=== PATIENT | male | born 1960 | race Two or more races ===

== ENCOUNTER 2018-01-08 07:01 | Day surgery (SDC) | payer MEDICARE ==
[~2018-01-08] VITALS: Ht 182.9 cm; Wt 99.6 kg
[2018-01-08] MEDS ORDERED: IOHEXOL 350 MG/ML 50 ML BTL (for Cath Lab) OTHER ONE (07:02)
[2018-01-08] MEDS ORDERED: OXYB5TAB8 PO (07:59)
[2018-01-08] MEDS ORDERED: ESCI20TA PO (07:59)
[2018-01-08] MEDS ORDERED: UBID50CA4 PO (07:59)
[2018-01-08] MEDS ORDERED: MIDO10TA PO (07:59)
[2018-01-08] MEDS ORDERED: ALPR1TAB3 PO (07:59)
--- NOTE | 2018-01-08 09:51 | PD.VS.PN ---
Pre-operative Note Pre-operative diagnosis: Failing LEFT upper extremity AVF Planned procedure: Aortogram w/ L UE angiogram Interval History: Pt has been feeling well; no changes in health that would preclude OR. Labs: Laboratory Results Test 01/08/18 07:35 Potassium Level 5.8 MEQ/L (3.5-5.1) Blood: none needed Imaging: will make in OR Orders: NPO Post-operative destination: DOCU Operative site marked: Yes Consent: Informed consent has been obtained from Kris March. I have explained the procedure in detail and discussed the risks, benefits, and potential complications. All questions have been answered. Joaquim Garnica MD January 08, 2018 09:51
[2018-01-08] MEDS ORDERED: MIDAZOLAM HCL 5 MG/5 ML VIAL ONE (10:11)
[2018-01-08] MEDS ORDERED: HEPARIN SODIUM - IV 10,000 UNITS/10 ML VIAL ONE (10:13)
--- NOTE | 2018-01-08 10:53 | HHI.PR ---
cc: Joaquim Garnica MD Immediate Post Op Note Procedure Date: January 08, 2018 Pre Op Diagnosis: Failing L UE AVF Post Op Diagnosis: Failing L UE AVF Surgeon: Joaquim Garnica [employer](s): none Procedure: Thoracic aortogram w/ L UE angiogram Findings: 1. No arch or arterial inflow disease 2. End to side BC AVF with reversal of flow (AC towards hand) 3. Will need surgical revision Additional Information: 5F R RETRIMMER sheath removed in OR Complications: none Specimen(s) removed: none Estimated blood loss: 10mL Anesthesia: MAC Drains: None Patient to: Other (DOCU) Patient Condition: Good Date/Time of Procedure: SEE SURGICAL CARE RECORD Joaquim Garnica MD January 08, 2018 10:52
--- NOTE | 2018-01-08 10:53 | CATHPROC ---
[employer] HIS Report Study Information Study Number Admission Scheduled Start Study Start [id number] Jan 08 2018 7:01AM 01/08/2018 Jan 08 2018 9:48AM [facility] Cath Endovascular Study Admit Source Facility Department Other [facility] - Studio Operator Physician and Clinical Staff Initial MD Garnica, Joaquim Director Of Revenue Adnrew Biswas,ASHUTOSH Recorder Leah Tinoco,ASSISTED LIVING COORDINATOR TECH2 Scrub Robin Levy,RT(R) Procedures Performed Procedure Location (Site) Vessel Name Abdominal Angiogram AO Arch (A1) Aorta Subclavian Angiogram Fistula Arterial Graft Subclavian Angiogram Subclav. Art. (Lft.) Subclavian Art. Wire insertion Fem Art (right) Femoral Art Equipment Time Intelligence Specialist Description Size Mfg Part Number Used/Scraped INTRODUCER SET, 09:49 [employer] FR 5 [id number] *[id number] Used MICROPUNCTURE STIFF [id number] *[id number] 10:29 MALLINCKRODT SYRINGE, ANGIOMAT 150ML 150ML *[id number] Used 2SUB [id number] 09:49 [employer] PACK, CCL CUSTOM * Used *[id number] CATHETER, VERTEBRAL 5FR 10:27 [employer] MEDICAL/MARY FR 5 [id number] Used 100CM TUBING, PRESSURE INJECTION [id number] 09:49 NAMIC PACER 72" Used 72" *[id number] 09:49 [employer]COMED OMNIPAQUE, 300 MG, 150ML 150ML [id number] Used 09:49 [employer]COMED OMNIPAQUE, 300 MG, 50ML 50ML [id number] Used [id number] 09:49 BERRY MEDICAL BLANKET,WARM AIR CCL * Used *[id number] 10:23 TERUMO MEDICAL SHEATH, FR5 TERUMO (10CM) FR 5 Used *[id number] WIRE, ANGLED GLIDE .035 [id number] 09:49 TERUMO MEDICAL/MARY 260CM Used 260CM *[id number] History: Allergies Allergy Reaction oxycodone hallucinations/combative History: Risk Factors Hypertension Yes On Dialysis History: Other Disease Selection Items Cancer Depression Renal Failure-Dialysis Labs K (meq/l) 3.50-5.10 5.8 CPK-MB (ng/ML) 0.50-3.60 Not Drawn Medication Medication Total Dose (Bolus/Oral) Medication Total Dosage/Unit 1% XYLOCAINE 20 mL FENTANYL 25 mcg HEPARIN 3000 units VERSED 2 mg Medications (Bolus/Oral) Medication Time Given Dosage/Unit Administered By Reason VERSED 01/08/2018 10:20:08 AM 2 mg Andrew Biswas 2 mg VERSED given in lab by Andrew Biswas RN in Right Antecubital via Peripheral IV. Ordered by Joaquim Garrido. 1% XYLOCAINE 01/08/2018 10:20:13 AM 20 mL Joaquim Garnica 20 mL 1% XYLOCAINE given in lab by Joaquim Garnica in Right Groin via Subcutaneous. FENTANYL 01/08/2018 10:20:48 AM 25 mcg Andrew Biswas 25 mcg FENTANYL given in lab by Andrew Biswas RN in Right Antecubital via Peripheral IV. Ordered by Joaquim Garnica. HEPARIN 01/08/2018 10:23:49 AM 3000 units Andrew Biswas 3000 units HEPARIN given in lab by Andrew Biswas RN in Right Antecubital via Peripheral IV. Ordered by Joaquim Garnica. Medication (Drip) Medication Time Given Dosage/Unit Concentration/Unit Diluent (ml) Solution IV Solutions 01/08/2018 10:01:38 AM 0 mL (IV) 500 NaCl .9 Patient arrived on IV Solutions in Right Antecubital via Peripheral IV. Pump/Drip Flow = 20 ml/hr usi ng NaCl .9. Initial Case Assessment Cardiovascular HR Rhythm NIBP Chest Pain 74 sr 138/73 0 Circulatory - Right Pulses Dorsalis Pedis 1 Scale (0,1,2,3,4,d) Circulatory - Left Pulses Dorsalis Pedis 2 Scale (0,1,2,3,4,d) Neurological State Oriented to time-place- Alert Moves all extremities person Respiration - General Respiration Rate SpO2 (%) (B/min) 16 97 Final Case Assessment Cardiovascular HR Rhythm NIBP Chest Pain 75 sr 131/59 0 Circulatory - Right Pulses Dorsalis Pedis 1 Scale (0,1,2,3,4,d) Circulatory - Left Pulses Dorsalis Pedis 2 Scale (0,1,2,3,4,d) Neurological State Oriented to time-place- Alert person Respiration - General Respiration Rate SpO2 (%) (B/min) 10 96 Chronological Log Time Study Chronological Log 9:55:30 Patient arrived via Bed. 9:55:40 Patient Name, D.O.B, / Armband Verified By R.N. 10:01:25 Consent signed by the physician and the patient and verified by the Studio Operator staff. 10::26 Pre-op and post- op instructions given; patient acknowledges understanding of instructions. 10:01:26 Verbal Stimulation=2 Physical Stimulation=2 Airway=2 Respiration=2 TOTAL=8. (0=absent, 1=li mited, 2=present) 10:01:28 Presedation assessment performed by Studio Operator RN. 10:01:30 Patient has been NPO for More than 6Hrs. 10:01:31 Skin Breakdown-none 10:01:34 Patient Warmer Placed on the Table. 10:01:35 Maddie Prominences Protected 10:01:37 A # 20 IV was noted in the Antecubital (left). Grade = patent 10:01:38 Patient arrived on IV Solutions in Right Antecubital via Peripheral IV. Pump/Drip Flow = 20 ml/hr using NaCl .9. 10:01:40 History and physical on the chart or being dictated. 10:08:49 MD arrived. Vitals capture started with the following parameters, Patient=Adult, Interval=5 min, Initial Pr fxzlln=349 mmHg, 10:10:23 Deflation Rate=5 mmHg, Cuff placed on Right Ankle 10:11:04 HR=74 bpm, BNIE=582/73 mmhg, SpO2=97.0 %, Resp=16 B/min Assessment: Initial Case, HR=74 BPM, Rhythm=sr, NLGZ=032/73 mmhg, Chest Pain=0 Right Pulses: Harish Ped=1 10:11:29 Left Pulses: Harish Ped=2 Neurological: State=Alert, Ox3, PACE Respiration: Resp=16 B/min, SpO2=97 % 10:13:36 Bilateral groins prepped with 2% chlorhexidine, and draped after a 3 minute waiting time. 10:15:59 HR=78 bpm, LNIQ=414/88 mmhg, SpO2=97.0 %, Resp=11 B/min Time Out. Correct patient, correct procedure, correct physician, power injector loaded, or not loaded with contrast with 10:20:04 surgical team present. Time Out Concurred by MD and individual staff in procedure. 10:20:08 2 mg VERSED given in lab by Andrew Biswas, ASHUTOSH in Right Antecubital via Peripheral IV. Orde red by Joaquim Garnica. 10:20:09 Case Start 10:20:13 20 mL 1% XYLOCAINE given in lab by Joaquim Garnica in Right Groin via Subcutaneous. 10::48 25 mcg FENTANYL given in lab by Andrew Biswas, RN in Right Antecubital via Peripheral IV. Ordered by Joaquim Garnica. 10:20:56 HR=77 bpm, UVLN=347/85 mmhg, SpO2=96.0 %, Resp=14 B/min 10:22:40 Access site was Right Femoral Artery. A INTRODUCER SET, MICROPUNCTURE STIFF FR 5 was advanced into the Fem Art (right) using the Perc utaneous ::48 technique. A SHEATH, FR5 TERUMO (10CM) FR 5 was exchanged in the Fem Art (right). This was necessary in or curt to 10::54 accomodate a larger catheter. 10:23:22 A WIRE, ANGLED GLIDE .035 260CM 260CM was inserted via Fem Art (right). A PIGTAIL STR. INFINITI CATHETER FR 5 was advanced over a wire. OMNIPAQUE, 300 MG, 50ML 50ML wa s used for 10:23:33 injections. 10:23:49 3000 units HEPARIN given in lab by Andrew Biswas, ASHUTOSH in Right Antecubital via Peripheral I V. Ordered by Joaquim Garnica. 10:25:39 Through a PIGTAIL STR. INFINITI CATHETER FR 5, The Abdominal Aorta was injected with 20 cc' s of contrast. 10:25:59 HR=78 bpm, VJAF=193/83 mmhg, SpO2=95.0 %, Resp=10 B/min After removing the current catheter a CATHETER, VERTEBRAL 5FR 100CM FR 5 was advanced over a WI RE, ANGLED 10:26:13 GLIDE .035 260CM 260CM. 10:27:14 Reference ECG taken 10:28:45 Wire removed Through a CATHETER, VERTEBRAL 5FR 100CM FR 5, The Subclav. Art. (Lft.) was injected with a tot al of 8 cc's of 10:29:52 contrast. OMNIPAQUE, 300 MG, 50ML 50ML used. 10:31:25 HR=80 bpm, NMFY=335/80 mmhg, SpO2=93.0 %, Resp=8 B/min Through a CATHETER, VERTEBRAL 5FR 100CM FR 5, The Fistula was injected with a total of 8 cc's of contrast. 10:32:14 OMNIPAQUE, 300 MG, 50ML 50ML used. Through a CATHETER, VERTEBRAL 5FR 100CM FR 5, The Fistula was injected with a total of 12 cc's of contrast. 10:33:35 OMNIPAQUE, 300 MG, 50ML 50ML used. 10:35:03 A WIRE, ANGLED GLIDE .035 260CM 260CM was inserted via Fem Art (right). 10:35:09 Catheter was removed 10:36:34 HR=81 bpm, QEWV=634/75 mmhg, SpO2=95.0 %, Resp=8 B/min 10:39:09 Case End 10:40:10 Sheath removed; pressure applied to access site. 10:41:00 HR=80 bpm, TAIE=678/76 mmhg, SpO2=95.0 %, Resp=8 B/min 10:45:59 HR=79 bpm, HTNA=197/80 mmhg, SpO2=94.0 %, Resp=8 B/min 10:50:33 Hemostasis obtained. 10:50:49 Sterile dressing applied to site 10:50:52 No case complications noted. 10:50:53 Cine recording checked. 10:50:54 Bedside Report will be given. Assessment: Final Case, HR=75 BPM, Rhythm=sr, JLHC=219/59 mmhg, Chest Pain=0 Right Pulses: Harish Ped=1 10:51:00 Left Pulses: Harish Ped=2 Neurological: State=Alert, Ox3 Respiration: Resp=10 B/min, SpO2=96 % 10:51:03 HR=88 bpm, QYZO=810/59 mmhg, SpO2=94.0 %, Resp=8 B/min 10:52:52 Vitals capture stopped. 10:53:14 Patient moved to bed 10:55:24 Patient transported to DOCU. End Study - Contrast Media Used In Study Contrast Total Opened (mL) Total Used (mL) Total Wasted (mL) Omnipaque 50 50 0 End Study - Radiation Exposure Fluoro Time (minutes) 2.0 End Study - Sheaths Sheaths Pulled By Sheath Hold Time (min) Robin Levy End Study - Patient Disposition Complications Transferred To Interventional Outcome No Outpatient Bed No attempt made
[2018-01-08 11:30] VITALS: O2SAT 93
--- NOTE | 2018-01-08 12:35 | MP ---
cc: Joaquim Garnica MD DATE OF OPERATION: 01/08/2018 PREOPERATIVE DIAGNOSIS: Failed left upper extremity arteriovenous fistula. POSTOPERATIVE DIAGNOSIS: Failed left upper extremity arteriovenous fistula. PROCEDURES PERFORMED: 1. Thoracic aortograms. 2. Left upper extremity angiogram. ATTENDING SURGEON: Joaquim Garnica MD RATE MANAGER SURGEON: None. ANESTHESIA: Local with sedation. INDICATION: Mr. March is a 57-year-old gentleman with left upper extremity access. This has been remediated several times and he appears to have outflow cephalic vein going from the antecubital to the wrist, and he was taken to the operating room for angiographic evaluation in preparation for surgical revision. Please note there was no prior catheter-based imaging available for my review. DESCRIPTION OF PROCEDURE:: Informed consent was obtained from the patient. He was taken to the operating room and placed supine on the operating room table. An appropriate timeout was taken to ensure correct patient's identity, operative site and planned procedure. Administration of antibiotics was not necessary as this is a clean procedure without a planned implantation of any foreign objects. Everyone in the room agreed with timeout and we proceeded. His bilateral groins were prepped and draped. Right groin was anesthetized with 1% lidocaine. A 21-gauge micropuncture needle was used to access the right common femoral artery. This was exchanged using Seldinger technique for a micropuncture sheath, through which a 0.035 Glidewire was introduced. The micropuncture sheath was changed for a 5-Hungarian sheath. The patient was systemically heparinized with 3000 units of IV heparin. The Glidewire was advanced to the ascending aorta and the pigtail catheter was placed over this. A thoracic aortogram was obtained. The Glidewire was reintroduced and this pigtail catheter exchanged for a vertebral catheter, which was used to selectively catheterize the subclavian, axillary and proximal brachial arteries, and left upper extremity angiogram was obtained. Wire, catheter and sheath were removed and pressure was held for hemostasis. There were no complications. I was present and scrubbed for the procedure. INTERPRETATION OF IMAGES: The patient has a patent 3-vessel aortic arch. The left subclavian, axillary and brachial arteries are widely patent without any hemodynamically significant stenoses. There is what appears to be a branch of the cephalic vein, which is anastomosed to the brachial artery and the outflow in the upper arm is occluded, but the outflow going from the antecubital down to the wrist is patent, and the ultimate outflow is the brachial and basilic veins of the forearm and upper arm. MD GUERO Lomas/ADITYA , 11:14 AM , 12:33 PM
== END 2018-01-08 15:41 | disposition home or self-care (01) ==
LOC: HDOC 07:01 → HDIC 07:01 → HDOC 15:41
PROVIDERS: ATTEND Surgery
DX: T82.858A Stenosis of other vascular prosthetic devices, implants and grafts, initial encounter (principal); N18.6 End stage renal disease; I12.0 Hypertensive chronic kidney disease with stage 5 chronic kidney disease or end stage renal disease; Z99.2 Dependence on renal dialysis
CPT/HCPCS: 36200; 36216; 75605; 75716; 84132; 99152; C1769; C1893; J1644; J2250; J3010; Q9967

== ENCOUNTER → 2018-01-15 | Day surgery (SDC) | payer MEDICARE ==
[~2018-01-15] VITALS: Ht 182.9 cm; Wt 100.5 kg
[~2018-01-15] MED LIST: ALPR1TAB3 PO; BUPIVACAINE HCL PF 0.5% 30 ML VIAL ONE; CALCIUM CHLORIDE 10% SOLN 1 GRAM/10 ML SYR ONE; CHLORHEXIDINE GLUCONATE 2 % 1 PACK (2 CLOTHS) TOPICAL PRN; DO NOT ADM ANY ANTICOAGULANT DRUGS PRN; ESCI20TA PO; HEPARIN SODIUM - IV 10,000 UNITS/10 ML VIAL ONE; HEPARIN-NS/PF INJ 500 ML ONE; HYDROmorphone HCL 2 MG TAB PO PRN; INSULIN HUMAN REGULAR 1,000 UNITS/10 ML VIAL SQ PRN; LACTATED RINGER'S 1000 ML IV PRN; LEVO175T2 PO; LIDOCAINE HCL 1% PF 5 ML SYRINGE OTHER ONE; METOPROLOL TARTRATE 25 MG TAB PO PRN; MIDO10TA PO; MORPHINE SULFATE 4 MG/ML INJ IV PRN; OXYB5TAB8 PO; PHENYLEPH/NS 1000 MCG/10 ML SYR IV ONE; POVIDONE IODINE 5% (ANTISEPSIS KIT) 4 APPLICATIONS EACH NARE PRN; PROPOFOL 200 MG/20 ML AMP IV ONE; PROTAMINE SULFATE 50 MG/5 ML VIAL ONE; SODIUM BICARBONATE 8.4% INJ 50 MEQ/50 ML SYR ONE; SODIUM CHLOR 0.9% 250 ML INJ 250 ML IV ONE; SODIUM CHLOR 0.9% 250 ML INJ 250 ML ONE; SODIUM CHLORID 0.9% 500 ML IV PRN; THROMBIN (TOPICAL) 20,000 UNIT SPRAY KIT ONE; UBID50CA4 PO; VANCOMYCIN HCL 1000 MG VIAL ONE; ePHEDrine/NS 25 MG/5 ML SYRINGE IV ONE
[2018-01-15 08:10] LABS: BASOPHIL # 0.1 TH/MM3 (0-0.2); BASOPHIL % 0.8 % (0.0-2.0); EOSINOPHIL # 0.3 TH/MM3 (0-0.4); EOSINOPHIL % 3.8 % (0.0-4.0); HEMATOCRIT 36.6 % (39.0-51.0); HEMOGLOBIN 12.1 GM/DL (13.0-17.0); LYMPH % 17.5 % (9.0-44.0); LYMPHOCYTE # 1.3 TH/MM3 (1.0-4.8); MEAN CELL VOLUME 96.4 FL (80.0-100.0); MEAN CORPUSCULAR HGB CONC 33.2 % (32.0-36.0); MEAN PLATELET VOLUME 8.1 FL (7.0-11.0); MONO % 11.3 % (0.0-8.0); MONOCYTE # 0.8 TH/MM3 (0-0.9); NEUT % 66.6 % (16.0-70.0); PLATELET COUNT 156 TH/MM3 (150-450); RED CELL DISTRIBUTION WIDTH 18.6 % (11.6-17.2); WHITE BLOOD COUNT 7.4 TH/MM3 (4.0-11.0)
[2018-01-15 08:13] LABS: PROTHROMBIN TIME - PATIENT 10.4 SEC (9.8-11.6)
--- NOTE | 2018-01-15 08:17 | PD.VS.PN ---
Pre-operative Note Pre-operative diagnosis: Failing LEFT arm access Planned procedure: L UE access revision Interval History: Pt has been feeling well; no problems. Yonatan HD yesterday. Labs: Laboratory Results Test 01/15/18 07:30 Hematocrit 36.6 % (39.0-51.0) Hemoglobin 12.1 GM/DL (13.0-17.0) Mean Corpuscular Hemoglobin 32.0 PG (27.0-34.0) Mean Corpuscular Hemoglobin Concent 33.2 % (32.0-36.0) Mean Corpuscular Volume 96.4 FL (80.0-100.0) Mean Platelet Volume 8.1 FL (7.0-11.0) Platelet Count 156 TH/MM3 (150-450) Prothromb Time International Ratio 1.0 RATIO Red Blood Count 3.80 MIL/MM3 (4.50-5.90) Red Cell Distribution Width 18.6 % (11.6-17.2) White Blood Count 7.4 TH/MM3 (4.0-11.0) Blood: T&S Imaging: Angio reviewed Orders: NPO Vanc 1g IV OCTOR Post-operative destination: PACU Operative site marked: Yes Consent: Informed consent has been obtained from Kris March. I have explained the procedure in detail and discussed the risks, benefits, and potential complications. All questions have been answered. Patient contact information: [phone] Joaquim Garnica MD January 15, 2018 08:17
[2018-01-15 08:22] LABS: BICARBONATE 22.2 MEQ/L (21.0-32.0); CALCIUM 9.7 MG/DL (8.5-10.1)
[2018-01-15 08:32] LABS: CREATININE 11.17 MG/DL (0.60-1.30)
--- NOTE | 2018-01-15 09:09 | EKG ---
Date Performed: 01/15/2018 Time Performed: 07:20:44 PTAGE: 57 years EKG: Sinus rhythm RIGHT BUNDLE BRANCH BLOCK LEFT ANTERIOR FASCICULAR BLOCK ABNORMAL ECG NO PREVIOUS TRACING DOCTOR: Lon Guzman Interpretating Date/Time 01/15/2018 09:07:39
--- NOTE | 2018-01-15 10:16 | HHI.PR ---
cc: Joaquim Garnica MD Immediate Post Op Note Procedure Date: January 15, 2018 Pre Op Diagnosis: Failing L UE AVF Post Op Diagnosis: Failing L UE AVF Surgeon: Joaquim Garnica Forensic Ballistics Expert(s): Joaquim Fields Procedure: L UE Access revision (conversion to forearm AVF loop with 6mm PTFE, basilic vein outflow) Findings: + thrill in outflow basilic vein + Doppler signal in wrist Complications: none Specimen(s) removed: none Estimated blood loss: 100mL Anesthesia: LMA Drains: None Fluids: 750 IVF Patient to: PACU Patient Condition: Good Implant/Devices: SEE IMPLANT LOG (if applicable) Date/Time of Procedure: SEE SURGICAL CARE RECORD Joaquim Garnica MD January 15, 2018 10:16
--- NOTE | 2018-01-15 10:46 | MP ---
cc: Joaquim Garnica MD DATE OF OPERATION: 01/15/2018 PREOPERATIVE DIAGNOSIS: Failing left upper extremity arteriovenous fistula. POSTOPERATIVE DIAGNOSIS: Failing left upper extremity arteriovenous fistula. PROCEDURE PERFORMED: Left upper extremity access revision (conversion to loop AV graft with the proximal aspect of the loop being the previous cephalic vein and the outflow being the basilic vein). OPERATING SURGEON: Joaquim Garnica MD PLANER FEEDER SURGEON: Joaquim Marquez. ANESTHESIA: General. INDICATIONS FOR PROCEDURE: This is a 57-year-old gentleman with a history of left upper extremity arteriovenous fistula. This was a brachiocephalic with a vbhl-ez-[id number] configuration with the outflow of the cephalic vein being both centrally towards the shoulder and headed peripherally towards the wrist. The central component failed and the outflow was essentially the cephalic vein going towards the wrist with the outflow of the fistula being burns paiute cephalic vein outflow. This was failing, and he was brought to the operating room for elective revision. DESCRIPTION OF PROCEDURE: Informed consent was obtained, the patient was taken to the operating room and placed supine on the operating table. Appropriate timeout was taken to ensure the patient's identity, the operative site and planned procedure. The administration of 1 gram of vancomycin was initiated prior to skin incision and will be discontinued after single preoperative dose. Vancomycin was chosen because of the patient's end-stage renal disease. Everyone in the room agreed with timeout and we proceeded. His left arm was prepped and draped. An incision was made over the course of the fistula, carried down to subcutaneous tissue with electrocautery. The fistula was identified and dissected free. A separate incision was made on the medial aspect of the upper arm, carried down to subcutaneous tissue with electrocautery. The basilic vein was identified. Side branches of the basilic vein were ligated with 3-0 silk. A tunnel was then created between these two and a 6 mm PTFE was passed through the tunnel, taking caution not to twist it. The patient was systemically heparinized with 3000 units of IV heparin. Proximal control of the fistula was obtained with a profunda clamp and the distal aspect, which was the burns paiute cephalic vein, was ligated with 3-0 silk ties. The fistula was then spatulated and the PTFE was sewn end-to-end with running 5-0 Prolene suture. At the completion it was flushed and deemed hemostatic. Clamps were released and María softjaw was placed on the graft. The basilic vein was controlled proximally and distally with profunda clamps and a longitudinal venotomy was made with 11 blade, extended with Blue scissors. The graft was cut to the appropriate length, spatulated and sewn end-to-side with running 5-0 Prolene suture. At the completion it was flushed and noted to be hemostatic. There was a nice thrill in the fistula and a Doppler signal in the wrist. The heparin was reversed with protamine. The wound was infiltrated with Marcaine, made hemostatic and closed with 2-0 Polysorb, 3-0 Polysorb and 4-0 Monocryl. Sponge, needle counts were correct at the end of the case. I was present and scrubbed and performed the entire procedure. MD GUERO Lomas/JOEL , 10:21 AM , 10:45 AM
[2018-01-15 11:10] VITALS: BP 137/73; PULSE 16; RESP 20; TEMP 97.3; O2SAT 98
== END | disposition home or self-care (01) ==
LOC: HCVO 06:50
PROVIDERS: ATTEND Surgery
DX: T82.590A Other mechanical complication of surgically created arteriovenous fistula, initial encounter (principal); N18.6 End stage renal disease; Z01.810 Encounter for preprocedural cardiovascular examination; Z01.818 Encounter for other preprocedural examination
CPT/HCPCS: 01844; 36832; 80048; 85025; 85610; 86850; 86900; 86901; 93005; C1768; J1644; J2370; J2720; J3010; J3370; J7040; J7050

== ENCOUNTER 2018-05-10 09:33 | Inpatient (IN) ==
--- NOTE | 2018-05-10 10:33 | ED ---
HPI General Chief complaint: [employer] Problem Stated complaint: doctor sent Time Seen by Provider: 05/10/18 10:25 Source: patient and other (Dr. Garnica) Mode of arrival: ambulatory Limitations: no limitations History of Present Illness complaint: Clotted left AV fistula Onset (ago): minute(s) (Noted just prior to presentation) Location: left and upper extremity Severity: mild Associated symptoms: denies other symptoms Related Data Home Medications Medication Instructions Recorded Confirmed alprazolam 0.5 mg PO DAILY PRN 05/10/18 05/10/18 cinacalcet [Sensipar] See Label Instructions .ROUTE 05/10/18 05/10/18 .COMPLEX escitalopram oxalate 20 mg PO BID 05/10/18 05/10/18 levothyroxine 50 mcg PO DAILY 05/10/18 05/10/18 sevelamer carbonate [Renvela] 800 mg PO TIDAC 05/10/18 05/10/18 Allergies Allergy/AdvReac Type Severity Reaction Status Date / Time oxycodone AdvReac Unknown hallucinati Verified 05/10/18 10:26 ons/combati ve Review of Systems ROS: all other systems reviewed are negative [facility] Medical History Medical History AV fistula (Acute) Acute renal failure on dialysis (Acute) Anuria (Acute) Anxiety and depression (Acute) Surgical History Surgical History History of nephrectomy (Acute) History of thyroidectomy, total (Acute) Social History Social History Substance History: No History of Abuse Second Hand Smoke Exposure: No Smoking Status: Never smoker How Often Do You Have a Drink Containing Alcohol: Never Recent Travel in [facility] within the Last 8 Weeks: No Recent Out of Country Travel within the Last 8 Weeks: No Immunization History Tetanus Immunization: <5 Years Hx Influenza Vaccine This Season: No Exam Const General: cooperative, healthy appearing and comfortable Orientation: alert, awake and oriented x3 HENMT Head: normal to inspection, normocephalic and atraumatic Eyes Alignment and Position: alignment normal Conjunctivae: conjunctivae normal Sclera: sclerae normal EOM: EOM intact bilaterally Neck Neck: normal visual inspection and full ROM Chest Chest: normal inspection of the chest and normal palpation of entire chest wall Resp Effort & Inspection: normal respiratory effort and able to speak in complete sentences Cardio Rate: regular rate Rhythm: regular rhythm Back/Spine/Pelvis Cervical Spine: cervical ROM normal Thoracic/Lumbar Spine: thoraco-lumbar ROM normal Skin General: turgor normal and dry skin Neuro General: alert, awake, oriented x3, moves all extremities and CN's II-XI intact bilaterally Extrem General: normal to inspection and full ROM Left upper extremity: full ROM, normal capillary refill and shoulder/upper arm ( AV fistula just above the left antecubital fossa. There is a palpable pulse on the arterial side of the fistula but no thrill palpable on the venous side of the fistula.) Psych Appearance: grossly normal Mental Status: mental status grossly normal Speech and Movement: speech and movement normal Mood: congruent mood Affect: normal affect Attitude: cooperative Thought Process: normal Thought Content: normal Judgment: judgment good Course Consultations Consultation #1: Dr. Garnica requested admission to the medical service with consultations to IR and nephrology. Time: 10:29 Consultation #2: Dr. Ospina will admit. Time: 12:23 Initial Documented Vital Signs Temperature 97.5 F L 05/10/18 09:47 Pulse Rate 78 05/10/18 09:47 Respiratory Rate 14 05/10/18 09:47 Blood Pressure 136/78 05/10/18 09:47 Pulse Oximetry 96 05/10/18 09:47 Last Documented Vital Signs Temperature 97.5 F L 05/10/18 09:47 Pulse Rate 78 05/10/18 09:47 Respiratory Rate 14 05/10/18 09:47 Blood Pressure 136/78 05/10/18 09:47 Pulse Oximetry 96 05/10/18 09:47 Medical Decision Making [facility] Narrative Medical decision making narrative: Patient presents with a chief complaint of a clotted left AV fistula. It was noted when he went to dialysis this morning. He called Dr. Garnica who placed the AV fistula. Dr. Marsh instructed the patient to come to the emergency department for further evaluation and treatment. Medical Screen Exam Complete: Yes Emergency Medical Condition: Yes Lab Data Lab results reviewed: Yes I reviewed the patient's lab results. Result diagrams: 05/10/18 10:30 05/10/18 10:30 Lab Results 05/10/18 05/10/18 05/10/18 Range/Units 10:30 10:30 10:30 WBC 8.7 (4.0-11.0) th/mm3 RBC 3.16 L (4.50-5.90) mil/mm3 Hgb 10.6 L (13.0-17.0) gm/dL Hct 31.8 L (39.0-51.0) % MCV 100.5 H (80.0-100.0) fL MCH 33.4 (27.0-34.0) pg MCHC 33.2 (32.0-36.0) % RDW 21.8 H (11.6-17.2) % Plt Count 139 L (150-450) th/mm3 MPV 7.6 (7.0-11.0) fL Neut % (Auto) 63.7 (16.0-70.0) % Lymph % (Auto) 19.7 (9.0-44.0) % Larue % (Auto) 12.4 H (0.0-8.0) % Eos % (Auto) 3.5 (0.0-4.0) % Baso % (Auto) 0.7 (0.0-2.0) % Neut # (Auto) 5.6 (1.8-7.7) th/mm3 Lymph # (Auto) 1.7 (1.0-4.8) th/mm3 Larue # (Auto) 1.1 H (0.0-0.9) th/mm3 Eos # (Auto) 0.3 (0.0-0.4) th/mm3 Baso # (Auto) 0.1 (0.0-0.2) th/mm3 WBC Differential . Differential Comment Auto diff final PT 10.2 (9.8-11.6) sec INR 1.0 Ratio Sodium 139 (136-145) meq/L Potassium 5.0 (3.5-5.1) meq/L Chloride 93 L (98-107) meq/L Carbon Dioxide 30.2 (21.0-32.0) meq/L Anion Gap 16 H (5-15) meq/L BUN 89 H (7-18) mg/dL Creatinine 12.45 H* (0.60-1.30) mg/dL Estimated GFR 4 L (>89) mL/min Random Glucose 101 (74-106) mg/dL Calcium 9.1 (8.5-10.1) mg/dL Discharge Plan Discharge Disposition Patient Disposition: 01 Discharge Home Discharge Details Diagnosis: AV fistula occlusion Physicians Team ED Provider: Aleah Richards Primary Care Provider: UNKNOWN, Rxs /Orders / Referrals /Forms Prescriptions: No Action alprazolam 0.5 mg Tablet 0.5 mg PO DAILY PRN (Reason: Anxiety) RF: 0 levothyroxine 50 mcg Tablet 50 mcg PO DAILY RF: 0 escitalopram oxalate 20 mg Tablet 20 mg PO BID RF: 0 cinacalcet [Sensipar] 30 mg Tablet See Label Instructions .ROUTE .COMPLEX RF: 0 sevelamer carbonate [Renvela] 800 mg Tablet 800 mg PO TIDAC RF: 0 Discharge Interventions Interventions: Vital Signs Last Done: 05/10/18 09:48 Status ED Status: Pending Admission
[2018-05-10 10:45] LABS: Baso # (Auto) 0.1 th/mm3 (0.0-0.2); Baso % (Auto) 0.7 % (0.0-2.0); Eos # (Auto) 0.3 th/mm3 (0.0-0.4); Eos % (Auto) 3.5 % (0.0-4.0); Hematocrit 31.8 % (39.0-51.0); Hemoglobin 10.6 gm/dL (13.0-17.0); Lymph # (Auto) 1.7 th/mm3 (1.0-4.8); Lymph % (Auto) 19.7 % (9.0-44.0); Mean Corpuscular HGB Conc 33.2 % (32.0-36.0); Mean Corpuscular Hemoglobin 33.4 pg (27.0-34.0); Mean Corpuscular Volume 100.5 fL (80.0-100.0); Mean Platelet Volume 7.6 fL (7.0-11.0); Mono # (Auto) 1.1 th/mm3 (0.0-0.9); Mono % (Auto) 12.4 % (0.0-8.0); Neut # (Auto) 5.6 th/mm3 (1.8-7.7); Neut % (Auto) 63.7 % (16.0-70.0); Platelet Count 139 th/mm3 (150-450); Red Blood Count 3.16 mil/mm3 (4.50-5.90); Red Cell Distribution Width 21.8 % (11.6-17.2); White Blood Count 8.7 th/mm3 (4.0-11.0)
[2018-05-10 10:54] LABS: Prothrombin Time 10.2 sec (9.8-11.6)
[2018-05-10 11:12] LABS: Calcium 9.1 mg/dL (8.5-10.1); Carbon Dioxide 30.2 meq/L (21.0-32.0)
[2018-05-10] MEDS ORDERED: ALPRAZolam 0.5 MG Tablet PO PRN (12:23)
--- NOTE | 2018-05-10 14:11 | P.HPIM ---
History of Present Illness Primary Care Physician: UNKNOWN History of Present Illness: Mr. March is a 57 year old male. He was having dialysis today and is found to have a clotted graft. He was sent to the hospital for further treatment. At baseline the patient had been stable. No trauma to the graft site. No signs of infection. No other complaints. Graft was originally placed here with Dr. Garnica. - Diagnosis (1) End stage renal disease (2) Renal failure (3) AV fistula occlusion Inpatient Certification: I certify that the inpatient services were ordered in accordance with Medicare regulations governing the order. This includes certification that hospital inpatient services are reasonable and necessary and in the case of services not specified as inpatient-only under 42 CFR 419.22(n), that they are appropriately provided as inpatient services in accordance to with the 2-midnight benchmark under 43 CFR 412.3(e) Estimated Total Length of Stay (Days): 2 Plans for Post Hospital Care: Home Review of Systems Constitutional: No fevers, no chills no night sweats, no fatigue, no weakness Eyes: No eye pain, no blurry vision, no loss of vision ENT: No sore throat, no ear pain, no rhinorrhea Cardiovascular: No chest pain, no tachycardia, no palpitations, no shortness of breath, no syncope Respiratory: No wheezing, no cough, no shortness of breath Gastrointestinal: No abdominal pain, no black tarry stools, no bright red blood per rectum, no vomiting, no diarrhea Musculoskeletal: No joint pain, no muscle cramps, no stiffness Integumentary: No rash, no ulcers, no drainage Neurologic: No sensory loss, no loss of motor function, no dizziness Psychiatric: No behavioral changes, no hallucinations, no suicidal ideations [facility] - History History Provided By: Patient - Medical History Medical History: Medical History (Last Reviewed 05/10/18 @ 10:30 by Aleah Richards) AV fistula Acute renal failure on dialysis Anuria Anxiety and depression - Surgical History Surgical History: Surgical History (Last Reviewed 05/10/18 @ 10:30 by Aleah Richards) History of nephrectomy History of thyroidectomy, total - Family History Family History: Family History (Last Updated 05/10/18 @ 14:06 by Rui Ospina MD) Other HTN (hypertension) - Tobacco History Second Hand Smoke Exposure: No Smoking Status: Never smoker - Alcohol History How Often Do You Have a Drink Containing Alcohol: Never - Substance Use History Substance History: No History of Abuse - Travel History Recent Travel in the [place] Within the Last 8 Weeks: No Recent Travel Out of the Country Within the Last 8 Weeks: No - Immunization History Tetanus Immunization: <5 Years Hx Influenza Vaccine This Season: No Medications and Allergies Active Medications: Active Medications Al Hydroxide/Mg Hydroxide (Milk Of Magnseveriano Liq) 30 ml PO Q12H PRN PRN Reason: Mild Constipation Alprazolam (Xanax) 0.5 mg PO DAILY PRN PRN Reason: Anxiety Cinacalcet (Sensipar) 30 mg PO DAILY SU Escitalopram Oxalate (Lexapro) 20 mg PO BID SU Levothyroxine Sodium (Synthroid) 50 mcg PO DAILY@0600 SU Ondansetron HCl (Zofran Inj) 4 mg IV.PUSH Q6H PRN PRN Reason: NAUSEA OR VOMITING Sevelamer Carbonate (Renvela) 800 mg PO TIDAC SU Sodium Chloride (Ns Flush) 2 ml IV.FLUSH PRN PRN PRN Reason: FLUSH AFTER USING IV ACCESS Allergies Allergy/AdvReac Type Severity Reaction Status Date / Time oxycodone AdvReac Unknown hallucinati Verified 05/10/18 10:26 ons/combati ve Home Medications Medication Instructions Recorded Confirmed Type alprazolam 0.5 mg PO DAILY PRN 05/10/18 05/10/18 History cinacalcet [Sensipar] See Label Instructions .ROUTE 05/10/18 05/10/18 History .COMPLEX escitalopram oxalate 20 mg PO BID 05/10/18 05/10/18 History levothyroxine 50 mcg PO DAILY 05/10/18 05/10/18 History sevelamer carbonate [Renvela] 800 mg PO TIDAC 05/10/18 05/10/18 History Exam Vital signs: Vital Signs 05/10/18 09:47 Temperature 97.5 F L Pulse Rate 78 Respiratory Rate 14 Blood Pressure 136/78 Pulse Oximetry 96 Intake & Output 05/09/18 05/10/18 05/10/18 18:59 06:59 18:59 Weight 98.883 kg Narrative: GENERAL: NAD, A&Ox3 HEAD: Normocephalic. NECK: Supple, trachea midline. No lymphadenopathy. EYES: No scleral icterus. No injection or drainage. CARDIOVASCULAR: Regular rate and rhythm without murmurs, gallops, or rubs. RESPIRATORY: Breath sounds equal bilaterally. No accessory muscle use. GASTROINTESTINAL: Abdomen soft, non-tender, nondistended. MUSCULOSKELETAL: No cyanosis, or edema. SKIN: Warm and dry. Scarring in left arm secondary to history of grafts for dialysis. Pulsatile movement of graft without bruit. NEURO: No focal neurological deficits. Results - Labs CBC & Chem 7: 05/10/18 10:30 05/10/18 10:30 Labs: Short CBC 05/10/18 Range/Units 10:30 WBC 8.7 (4.0-11.0) th/mm3 Hgb 10.6 L (13.0-17.0) gm/dL Hct 31.8 L (39.0-51.0) % Plt Count 139 L (150-450) th/mm3 BMP 05/10/18 10:30 Sodium 139 Potassium 5.0 Chloride 93 L Carbon Dioxide 30.2 BUN 89 H Creatinine 12.45 H* Calcium 9.1 Caprini VTE Risk Assessment Caprini VTE Risk Assessment: No/Low Risk (score <= 1) Caprini Risk Assessment Model: Point Value = 1 Point Value = 2 Point Value = 3 Point Value = 5 Age 41-60 Minor surgery BMI > 25 kg/m2 Swollen legs Varicose veins or History of unexplained or recurrent spontaneous Oral contraceptives or hormone replacement Sepsis (< 1 month) Serious lung disease, including pneumonia (< 1 month) Abnormal pulmonary function Acute myocardial infarction Congestive heart failure (< 1 month) History of inflammatory bowel disease Medical patient at bed rest Age 61-74 Arthroscopic surgery Major open surgery (> 45 min) Laparoscopic surgery (> 45 min) Malignancy Confined to bed (> 72 hours) Immobilizing plaster cast Central venous access Age >= 75 History of VTE Family history of VTE Factor V Leiden Prothrombin [id number] Lupus anticoagulant Anticardiolipin antibodies Elevated serum homocysteine Heparin-induced thrombocytopenia Other congenital or acquired thrombophilia Stroke (< 1 month) Elective arthroplasty Hip, pelvis, or leg fracture Acute spinal cord injury (< 1 month) Prophylaxis Regimen: Total Risk Factor Score Risk Level Prophylaxis Regimen 0-1 Low Early ambulation 2 Moderate Order ONE of the following: *Sequential Compression Device (SCD) *Heparin 5000 units SQ BID 3-4 Higher Order ONE of the following medications: *Heparin 5000 units SQ TID *Enoxaparin/Lovenox 40 mg SQ daily (WT < 150 kg, CrCl > 30 mL/min) *Enoxaparin/Lovenox 30 mg SQ daily (WT < 150 kg, CrCl > 10-29 mL/min) *Enoxaparin/Lovenox 30 mg SQ BID (WT < 150 kg, CrCl > 30 mL/min) AND/OR *Sequential Compression Device (SCD) 5 or more Highest Order ONE of the following medications: *Heparin 5000 units SQ TID (Preferred with Epidurals) *Enoxaparin/Lovenox 40 mg SQ daily (WT < 150 kg, CrCl > 30 mL/min) *Enoxaparin/Lovenox 30 mg SQ daily (WT < 150 kg, CrCl > 10-29 mL/min) *Enoxaparin/Lovenox 30 mg SQ BID (WT < 150 kg, CrCl > 30 mL/min) AND *Sequential Compression Device (SCD) Assessment and Plan - Assessment (1) End stage renal disease Code(s): N18.6 - End stage renal disease Status: Acute (2) Renal failure Code(s): N19 - Unspecified kidney failure Status: Acute (3) AV fistula occlusion Code(s): T82.898A - Other specified complication of vascular prosthetic devices , implants and grafts, initial encounter Status: Acute - Plan 57-year-old male admitted secondary to AV fistula malfunction and missed dialysis with renal failure AV fistula malfunction Acute renal failure End-stage renal disease, dialysis dependent Anuria Weight gain Patient is in need of dialysis, due today Admit inpatient for monitoring renal function and treatment Urgent need for dialysis Consult nephrology to initiate dialysis Consult interventional radiology for AV fistula occlusion procedure or catheter placement Vascular surgeon consulted Anxiety and depression Continue baseline treatments DVT prophylaxis SCDs (3) AV fistula occlusion Qualifiers: Encounter type: initial encounter Qualified Code(s): T82.898A - Other specified complication of vascular prosthetic devices, implants and grafts, initial encounter
[2018-05-10] MEDS ORDERED: Sod Chloride 0.9% Inj 1,000 ML OTHER PRN ×2 (14:13)
[2018-05-10] MEDS ORDERED: Gelatin 12 MM/7 MM Topical Foam TOPICAL PRN (14:13)
[2018-05-10] MEDS ORDERED: Heparin 10,000 UNITS/10 ML Vial (for IV use) OTHER PRN ×2 (14:13)
[2018-05-10] MEDS ORDERED: Albumin Human 25% Inj 100 ML IV.SIG PRN (14:13)
[2018-05-10] MEDS ORDERED: Sod Chloride 0.9% Inj 1,000 ML IV.CONT PRN (14:13)
[2018-05-10] MEDS ORDERED: Acetaminophen 325 MG Tablet PO PRN (14:13)
--- NOTE | 2018-05-10 15:48 | P.CONVS ---
History of Present Illness Service: Vascular Surgery Consult date: 05/10/18 Primary Care Provider: UNKNOWN Chief Complaint: Clotted L UE AVG History of Present Illness: 57 yo male well known to me, s/p L BC elsewhere that failed and I converted to FA loop with PTFE with basilic vein outflow. Using well for HD until this morning. No hand pain or arm pain. Review of Systems Constitutional: Denies chills, Denies fever(s) PMFSH - History History Provided By: Patient - Medical History Medical History: Medical History (Last Reviewed 05/10/18 @ 15:46 by Joaquim Garnica MD) AV fistula Acute renal failure on dialysis Anuria Anxiety and depression - Surgical History Surgical History: Surgical History (Last Reviewed 05/10/18 @ 15:46 by Joaquim Garnica MD) History of nephrectomy History of thyroidectomy, total - Family History Family History: Family History (Last Updated 05/10/18 @ 14:06 by Rui Ospina MD) Other HTN (hypertension) - Tobacco History Second Hand Smoke Exposure: No Smoking Status: Never smoker - Alcohol History How Often Do You Have a Drink Containing Alcohol: Never - Substance Use History Substance History: No History of Abuse - Travel History Recent Travel in the [place] Within the Last 8 Weeks: No Recent Travel Out of the Country Within the Last 8 Weeks: No - Immunization History Tetanus Immunization: <5 Years Hx Influenza Vaccine This Season: No Medications and Allergies Active Medications: Active Medications Acetaminophen (Tylenol) 650 mg PO UNSCH PRN PRN Reason: SEE LABEL COMMENTS Al Hydroxide/Mg Hydroxide (Milk Of Hiren Gonzales) 30 ml PO Q12H PRN PRN Reason: Mild Constipation Alprazolam (Xanax) 0.5 mg PO DAILY PRN PRN Reason: Anxiety Cinacalcet (Sensipar) 30 mg PO DAILY [facility] Last Admin: 05/10/18 14:36 Dose: 30 mg Clonidine HCl (Catapres) 0.1 mg PO UNSCH PRN PRN Reason: SEE LABEL COMMENTS Diphenhydramine HCl (Benadryl) 25 mg PO UNSCH PRN PRN Reason: SEE LABEL COMMENTS Escitalopram Oxalate (Lexapro) 20 mg PO BID SU Gelatin (Gelfoam 12 Mm/7 Mm Topical) 1 foam TOPICAL PRN PRN PRN Reason: help stop bleeding from site Gentamicin Sulfate (Gentamicin Inj) 20 mg OTHER WITH DIALYSIS PRN PRN Reason: Dwell Gentamycin Lock Heparin Sodium (Porcine) (Heparin Inj) 8,000 units OTHER WITH DIALYSIS PRN PRN Reason: for machine prime Heparin Sodium (Porcine) (Heparin Inj) 1,000 units OTHER WITH DIALYSIS PRN PRN Reason: Dwell Heparin to Fill Catheter Albumin Human (Flexbumin 25% Inj) 100 mls @ 60 mls/hr IV.SIG WITH DIALYSIS PRN PRN Reason: hypotension / volume replace Sodium Chloride (Ns Inj) 1,000 mls @ 200 mls/hr OTHER .Q5H PRN PRN Reason: for dialyzer flush PRN Sodium Chloride (Ns Inj) 1,000 mls @ 0 mls/hr IV.CONT .Q0M PRN PRN Reason: hypotension / volume replace Sodium Chloride (Ns Inj) 1,000 mls @ 0 mls/hr OTHER .Q0M PRN PRN Reason: for prime and rinse back Levothyroxine Sodium (Synthroid) 50 mcg PO DAILY@0600 SU Mannitol (Mannitol Inj) 12.5 gm IV.PUSH UNSCH PRN PRN Reason: hypotension / volume replace Nitroglycerin (Nitrostat Sl) 0.4 mg SL Q5M PRN PRN Reason: CHEST PAIN Ondansetron HCl (Zofran Inj) 4 mg IV.PUSH Q6H PRN PRN Reason: NAUSEA OR VOMITING Ondansetron HCl (Zofran Inj) 4 mg IV.PUSH UNSCH PRN PRN Reason: NAUSEA OR VOMITING Sevelamer Carbonate (Renvela) 800 mg PO TIDAC SU Sodium Chloride (Ns Flush) 2 ml IV.FLUSH PRN PRN PRN Reason: FLUSH AFTER USING IV ACCESS Sodium Chloride (Ns Flush) 5 ml IV.FLUSH PRN PRN PRN Reason: flush each lumen during HD Allergies Allergy/AdvReac Type Severity Reaction Status Date / Time oxycodone AdvReac Unknown hallucinati Verified 05/10/18 10:26 ons/combati ve Home Medications Medication Instructions Recorded Confirmed Type alprazolam 0.5 mg PO DAILY PRN 05/10/18 05/10/18 History cinacalcet [Sensipar] See Label Instructions .ROUTE 05/10/18 05/10/18 History .COMPLEX escitalopram oxalate 20 mg PO BID 05/10/18 05/10/18 History levothyroxine 50 mcg PO DAILY 05/10/18 05/10/18 History sevelamer carbonate [Renvela] 800 mg PO TIDAC 05/10/18 05/10/18 History Physical Exam Vital Signs / I&O: Vital Signs 05/10/18 09:47 Temperature 97.5 F L Pulse Rate 78 Respiratory Rate 14 Blood Pressure 136/78 Pulse Oximetry 96 Intake & Output 05/09/18 05/10/18 05/10/18 18:59 06:59 18:59 Weight 98.883 kg Neuro: sitting comfortably, no distress HEENT: NC/aT Neck: no JVD Heart: reg rate Lungs: nonlabored Extremities: L UE healed incisions pulse not thrill on lateral aspect of FA Laboratory Results - last 24 hr 05/10/18 05/10/18 05/10/18 10:30 10:30 10:30 WBC 8.7 RBC 3.16 L Hgb 10.6 L Hct 31.8 L MCV 100.5 H MCH 33.4 MCHC 33.2 RDW 21.8 H Plt Count 139 L MPV 7.6 Neut % (Auto) 63.7 Lymph % (Auto) 19.7 Gr[place]gs % (Auto) 12.4 H Eos % (Auto) 3.5 Baso % (Auto) 0.7 Neut # (Auto) 5.6 Lymph # (Auto) 1.7 [place]gs # (Auto) 1.1 H Eos # (Auto) 0.3 Baso # (Auto) 0.1 WBC Differential . Differential Comment Auto diff final PT 10.2 INR 1.0 Sodium 139 Potassium 5.0 Chloride 93 L Carbon Dioxide 30.2 Anion Gap 16 H BUN 89 H Creatinine 12.45 H* Estimated GFR 4 L Random Glucose 101 Calcium 9.1 Assessment and Plan - Assessment (1) AV fistula occlusion Code(s): T82.898A - Other specified complication of vascular prosthetic devices , implants and grafts, initial encounter Status: Acute (2) End stage renal disease Code(s): N18.6 - End stage renal disease Status: Acute - Plan Acute L UE AVG thrombosis. 1. Suggest IR consult for endovascular lysis and hopeful avoidance of catheter. 2. Discussed with Dr. Edwards, nephrology. 3. Patient and agree to plan 4. Of note, they would like to get established with [facility] nephrology. Joaquim Garnica MD FACS [employer] sales coach [facility] - Heart and Vascular Surgery at [facility] [phone] (1) AV fistula occlusion Qualifiers: Encounter type: initial encounter Qualified Code(s): T82.898A - Other specified complication of vascular prosthetic devices, implants and grafts, initial encounter
--- NOTE | 2018-05-10 19:51 | MB ---
cc: Rui Edwards MD DATE: 05/10/2018 REASON FOR CONSULTATION: End-stage renal disease management with clotted arteriovenous graft. HISTORY OF PRESENT ILLNESS: This is a 57-year-old male with a history of end-stage renal disease. He is on hemodialysis and is followed up at [facility] with Dr. Michael Meyer. The patient has had a complicated access history and currently has a left forearm graft, which was created with Dr. Garnica here at [facility] back in January. The graft had been functioning well; however, the patient had thrombosis of the graft and a decreased thrill this morning. He spoke to Dr. Garnica and was instructed to come to the hospital for further evaluation. The patient otherwise had a full hemodialysis treatment on . He has no other acute complaints and came for a graft evaluation. REVIEW OF SYSTEMS: The patient denies any fevers, chills. No nausea, no vomiting, no diarrhea, no constipation, no dysuria. No chest pains, no shortness of breath. Otherwise, review of systems negative. PAST MEDICAL HISTORY: Includes AV graft with previous fistula and revision. Previous history of anxiety and depression. The patient with ESRD, on dialysis, followed up with Dr. Meyer in [place]. PAST SURGICAL HISTORY: Includes nephrectomy, thyroidectomy and AV access histories. SOCIAL HISTORY: No history of alcohol, tobacco or drug use. The patient lives at home with his . FAMILY HISTORY: Noncontributory. PHYSICAL EXAMINATION: At time of evaluation: VITAL SIGNS: Blood pressure 136/78, temperature 97.5. GENERAL: Awake, alert, oriented. HEENT: Neck is soft, supple. CARDIAC: Regular rate and rhythm. PULMONARY: Lungs clear to auscultation. ABDOMEN: Soft, nontender, nondistended. EXTREMITIES: No edema. LABORATORY FINDINGS: White count 8.7, hemoglobin 10.6, hematocrit 31.8 with a platelet count of 139. PT 10.2, INR 1.0. Sodium 139, potassium 5, chloride 93, bicarbonate 30, BUN 89, creatinine 12.45, glucose 101. ASSESSMENT AND PLAN: 1. End-stage renal disease. The patient is on hemodialysis, Tuesdays, , and Saturdays and follows up as an outpatient with Dr. Michael Meyer in [place]. The patient had his last hemodialysis session on . At this point, he presents with a clotted left forearm loop AV graft. On exam, the graft is pulsable of the arterial limb and decreased thrill of the venous limb. I suspect there is likely venous anastomosis stenosis at this point. I discussed the case with interventional radiology who will attempt a thrombectomy procedure today or tomorrow. If this is unsuccessful, a catheter can be placed for dialysis. We will try to do dialysis later this evening post-thrombectomy. Otherwise, the patient is hemodynamically stable and stable for interventional procedure. His INR is 1.0 and his volume status and respiratory status are otherwise stable. His potassium is slightly elevated at 5; however, is stable for end-stage renal disease and no other acute issues at this point. 2. Clotted arteriovenous graft. The patient had this graft created with Dr. Garnica after previous revision of a fistula. This graft was created earlier in January of this year. We will follow with interventional radiology for attempted graft thrombectomy. If this is unsuccessful, a catheter may be placed and dialysis can be performed with the catheter. 3. Secondary hyperparathyroidism. Continue with medications. The patient is on Renvela as well as Sensipar. Continue with these medications at this time. 4. History of depression. Continue with alprazolam. 5. History of hypothyroidism. Continue with Synthroid. Of notice if the patient has successful dialysis, he will be stable for discharge after dialysis today. MD TESFAYE CampoverdeP/ct , 02:19 PM , 02:26 PM ONUR
[2018-05-10] MEDS ORDERED: Melatonin 5 MG Tablet PO ONE (23:31)
[2018-05-11] MEDS ORDERED: Levothyroxine 50 MCG Tablet PO SCH (06:00)
[2018-05-11 07:18] LABS: Hematocrit 30.8 % (39.0-51.0); Hemoglobin 10.4 gm/dL (13.0-17.0); Mean Corpuscular HGB Conc 33.8 % (32.0-36.0); Mean Corpuscular Hemoglobin 33.4 pg (27.0-34.0); Mean Corpuscular Volume 98.9 fL (80.0-100.0); Platelet Count 121 th/mm3 (150-450); Red Blood Count 3.11 mil/mm3 (4.50-5.90); Red Cell Distribution Width 21.5 % (11.6-17.2); White Blood Count 8.4 th/mm3 (4.0-11.0)
[2018-05-11 07:29] LABS: Alanine Aminotransferase 18 U/L (12-78); Albumin 3.3 g/dL (3.4-5.0); Alkaline Phosphatase 140 U/L (45-117); Anion Gap 16 meq/L (5-15); Aspartate Aminotransferase 5 U/L (15-37); Blood Urea Nitrogen 98 mg/dL (7-18); Calcium 7.9 mg/dL (8.5-10.1); Carbon Dioxide 27.4 meq/L (21.0-32.0); Chloride 95 meq/L (98-107); Glomerular Filtration Rate 4 mL/min (>89); Glucose,Random 60 mg/dL (74-106); Sodium 138 meq/L (136-145); Total Protein 6.4 g/dL (6.4-8.2)
[2018-05-11 07:42] LABS: Potassium 6.6 meq/L (3.5-5.1)
[2018-05-11] MEDS ORDERED: Sodium Polystyrene Sulfonate/Sorbitol Liq 15 GM/60 ML UDC PO ONE (08:32)
[2018-05-11] MEDS ORDERED: fentaNYL Citrate Inj 250 MCG/5 ML Ampul ONE (11:13)
[2018-05-11] MEDS ORDERED: Cathflo Activase Inj 2 MG Vial IV.PUSH ONE (12:02)
[2018-05-11] MEDS ORDERED: Heparin 10,000 UNITS/10 ML Vial (for IV use) ONE (12:04)
--- NOTE | 2018-05-11 12:47 | P.PN ---
Subjective Interval history: Follow-up visit left AV fistula graft occlusion, end-stage renal disease on hemodialysis Saturday. Patient seen and examined today. Reports he is doing well. States he follows with hemodialysis in [place] and has been seeing the curam developer there.Denies pain and discomfort. Denies SOB/ dyspnea. Denies chest pain, palpitations, headaches, dizziness. Denies fevers, chills, n/v/d. Denies hematuria, dysuria. Physical Exam Vital signs: Vital Signs 05/10/18 16:00 05/10/18 19:55 05/10/18 23:58 Temperature 97.5 F L 97.6 F 97.6 F Pulse Rate 78 72 70 Respiratory Rate 14 18 18 Blood Pressure 138/74 147/77 H 149/87 H Pulse Oximetry 98 97 96 05/11/18 03:34 05/11/18 08:00 05/11/18 08:31 Temperature 97.7 F Pulse Rate 73 74 Respiratory Rate 18 Blood Pressure 143/78 H 140/68 Pulse Oximetry 98 96 Intake & Output 05/10/18 05/11/18 05/11/18 18:59 06:59 18:59 Intake Total 240 / 240 Balance 240 / 240 Weight 98.883 kg Intake: Oral 240 / 240 Other: # Voids 0 # Bowel Movements 0 Narrative: GENERAL: This is a well-nourished, well-developed patient, in no apparent distress. SKIN: Warm and dry HEENT: Normocephalic. Pupils equal round and reactive. Nose without bleeding. Airway patent. NECK: Trachea midline. Supple. CARDIOVASCULAR: Regular rate and rhythm without murmurs, gallops, or rubs. RESPIRATORY: Clear to auscultation. Breath sounds equal bilaterally. No wheezes , rales, or rhonchi. GASTROINTESTINAL: Abdomen soft, non-tender, nondistended. Bowel Sounds normoactive x4. MUSCULOSKELETAL: Extremities without clubbing, cyanosis, or edema. Left AV fistula pulsating NEUROLOGICAL: Awake and alert. Oriented to time, place, person. No focal neuro deficit. Moves all extremities. Normal speech. Results - Labs CBC & Chem 7: 05/11/18 05:20 05/11/18 05:20 Laboratory Results - last 24 hr 05/11/18 05/11/18 05:20 05:20 WBC 8.4 RBC 3.11 L Hgb 10.4 L Hct 30.8 L MCV 98.9 MCH 33.4 MCHC 33.8 RDW 21.5 H Plt Count 121 L MPV 8.0 Sodium 138 Potassium 6.6 H* D Chloride 95 L Carbon Dioxide 27.4 Anion Gap 16 H BUN 98 H Creatinine 13.92 H* D Estimated GFR 4 L Random Glucose 60 L Calcium 7.9 L D Total Bilirubin 0.4 AST 5 L ALT 18 Alkaline Phosphatase 140 H Total Protein 6.4 Albumin 3.3 L Assessment and Plan - Assessment (1) End stage renal disease Code(s): N18.6 - End stage renal disease Status: Acute (2) Renal failure Code(s): N19 - Unspecified kidney failure Status: Acute (3) AV fistula occlusion Code(s): T82.898A - Other specified complication of vascular prosthetic devices , implants and grafts, initial encounter Status: Acute - Plan Patient is a 57-year-old male with past medical history of end-stage renal disease on hemo-dialysis who came into the hospital secondary to AV fistula malfunction and has missed dialysis. AV fistula malfunction -Patient was seen and known to Dr. Garnica, appreciate recommendation. Suggest IR for endovascular lysis -IR procedure is scheduled today -May do HD after successful declotting. May DC after HD if cleared by nephrology End-stage renal disease on hemodialysis -Nephrology consulted, seen by Dr. Edwards, appreciate recommendation for continued dialysis. -Regular dialysis Saturday, , Saturday -Continue Sensipar, Renvela Anxiety, depression -Continue home medication DVT Prop Early ambulation Discharge patient to home Condition on discharge: Stable Renal Diet as tolerated Ad Joy activity Rx written: Follow-up with primary care physician, Hemodialysis- curam developer Code Status: Full code Discussed Condition With: Patient, nursing Discharge Planning: Plan to DC home when cleared by nephrology (3) AV fistula occlusion Qualifiers: Encounter type: initial encounter Qualified Code(s): T82.898A - Other specified complication of vascular prosthetic devices, implants and grafts, initial encounter
--- NOTE | 2018-05-11 13:30 | P.RAD ---
Post Procedure Progress Note - Procedure Information Procedure Date: 05/11/18 Supervising Radiologist: Edison Jeffers MD Estimated blood loss (mL): 5 Anesthesia: Conscious Sedation - Plan of Activity Patient to Unit: [facility] Patient Condition: Good See PACS Report for procedural detail/treatment.
[2018-05-11] MEDS ORDERED: Iohexol 350 MG/ML 50 ML Vial (for Rad Diag) IVCONTRAST ONE (13:49)
--- NOTE | 2018-05-11 16:06 | P.PNNP ---
Subjective Interval history: No acute complaints Successful AV graft thrombectomy today Physical Exam Vital signs: Vital Signs 05/10/18 19:55 05/10/18 23:58 05/11/18 03:34 Temperature 97.6 F 97.6 F 97.7 F Pulse Rate 72 70 73 Respiratory Rate 18 18 18 Blood Pressure 147/77 H 149/87 H 143/78 H Pulse Oximetry 97 96 98 05/11/18 08:00 05/11/18 08:31 05/11/18 13:50 Temperature 97.7 F Pulse Rate 74 80 Respiratory Rate 24 Blood Pressure 140/68 174/87 H Pulse Oximetry 96 97 05/11/18 14:00 05/11/18 14:15 05/11/18 14:45 Temperature Pulse Rate 79 77 75 Respiratory Rate 22 17 16 Blood Pressure 166/80 H 161/86 H 157/87 H Pulse Oximetry 95 96 96 05/11/18 15:00 Temperature Pulse Rate 78 Respiratory Rate 15 Blood Pressure 155/82 H Pulse Oximetry 92 L Intake & Output 05/10/18 05/11/18 05/11/18 18:59 06:59 18:59 Intake Total 240 / 240 Balance 240 / 240 Weight 98.883 kg Intake: Oral 240 / 240 Other: # Voids 0 # Bowel Movements 0 - Constitutional no acute distress - Routine HEENT Exam Head: Present: normocephalic Eye: Present: EOMI ENT: Present: mucous membranes moist - Routine Neck Exam Present: supple - Routine Respiratory Exam Present: CTA bilaterally - Routine Cardiovascular Exam Present: RRR - Routine Abdominal Exam Present: soft - Routine Skin Exam Present: intact - Routine Neurological Exam Present: alert, oriented X3, CN II-XII intact - Detailed Neurological Exam: Coma Scale Eye Opening: Spontaneous - Routine Psychiatric Exam Present: normal affect Assessment and Plan - Assessment (1) End stage renal disease Code(s): N18.6 - End stage renal disease Status: Acute Plan: Outpatient TTS HD in [place]. Last HD , then presented with AV graft thrombosis and sent to [facility]. Successful graft thrombectomy today - for dialysis this evening. Discharge after dialysis tonight, then continue with outpatient HD Saturday Continue all medications Initial hyperkalemia - given kayexelate. 1K bath with HD today, no need to recheck labs otherwise. (2) AV fistula occlusion Code(s): T82.898A - Other specified complication of vascular prosthetic devices , implants and grafts, initial encounter Status: Acute Qualifiers: Encounter type: initial encounter Qualified Code(s): T82.898A - Other specified complication of vascular prosthetic devices, implants and grafts, initial encounter Plan: succussful graft thrombectomy per IR - appreciate assistance. Apparent venous anastomosis stenosis causing graft thrombosis with METAL AND PLASTIC HEATER today. May continue to F/u outpatient with Dr. Meyer in [facility] or with tx and/or Dr. Garnica. Discussed long-term graft surveillance and management with patient.
[2018-05-11 16:43] VITALS: BP 158/88; RESP 20; TEMP 97.9; O2SAT 96
[2018-05-11 18:26] VITALS: PULSE 75
[2018-05-12 11:19] LABS: Hemoglobin A1c 4.4 % (4.3-6.0)
--- NOTE | 2018-05-13 15:04 | IR ---
EXAM DATE: 05/11/2018 2:17 PM EDT AGE/SEX: 57 years / Male INDICATIONS: 57-year-old male with history of multiple failed left approximately fistulas with parti al loop graft in the upper forearm who presents with acute thrombosis. Patient is severely hyperkalem ic and emergent, lysis as been requested. CLINICAL DATA: This is the patient's initial encounter. Patient reports that signs and symptoms have been present for 1 day and indicates a pain score of 0/10. MEDICAL/SURGICAL HISTORY: Renal failure, acute. Anuria, Anxiety, Depression, Thyroidectomy. Ne phrectomy. COMPARISON: No prior exams available for comparison. FLUORO TIME (min): 15.4 IMAGE SERIES: 24 ACCESS SITE: Left arm SEDATION TIME (min): 120 CONTRAST (cc): 95 Omnipaque (iohexol) 350 MEDICATION(S): 3 mg midazolam (Versed) IV 150 mcg fentanyl (Sublimaze) IV 7000 Units Heparin IV 10 mg TPA IV DEVICE(S): Left TERRAZZO HELPER Balloon .035 7 x 40 75cm [place] Over the wire, A/V Graft. Left A/V Graft, 5Fr María balloon. . . PROCEDURE : 1. Ultrasound guided puncture of the arterial limb of the fistula. 2. Ultrasound guided puncture of the venous limb of the fistula. 3. Evaluation of dialysis graft. 4. TPA thrombolysis of dialysis graft. 5. Mechanical thrombolysis of dialysis graft. 6. Angioplasty of the venous anastomosis. 7. Angioplasty of the arterial anastomosis. 8. Upper extremity venogram. 9. Superior venacavogram. 10. Conscious sedation with continuous EKG and oximetry monitoring. The risks, benefits and alternatives to the procedure were explained and verbal and written consent w as obtained. The site was prepped in sterile fashion. Full sterile technique was used, including cap, mask, steri le gloves and gown and a large sterile sheet. Hand hygiene and 2% chlorhexidine and/or betadine/alco hol prep was utilized per protocol for cutaneous antisepsis. Sterile gel and sterile probe cover wer e utilized for ultrasound guidance. The skin and subcutaneous tissues were infiltrated with local an esthetic solution. With ultrasound and fluoroscopic guidance the arterial limb of the fistula was punctured directed tow tonya the venous anastomosis and a 6 Guyan[place] sheath was placed. A Immyenstein catheter was at advanced t hrough the clotted portion of the graft into the superior vena cava where a superior cavogram was per formed in the AP projection. This demonstrates no evidence of central venous stenosis. The catheter was then retracted where venogram of the upper extremity was performed. A fistulogram was performed through the previously placed sheath demonstrating thrombosed partial loop graft in the proximal for earm with an anastomosis to a short forearm cephalic vein with arterial anastomosis in the antecubita l fossa. There is a small pseudoaneurysm in the proximal outflow vein in the antecubital fossa. Follo wing this through the previously placed sheath 6 mg of TPA and 5000 units of heparin were placed with in the fistula. Mechanical thrombectomy of the graft was performed using a partially inflated balloon and angioplasty was then performed with a fully inflated 7 mm balloon at the level of the venous mitch stomosis. Attention was then turned to the arterial limb fistula. With ultrasound and and fluorosco pic guidance the venous limb of the fistula was punctured towards the arterial anastomosis and a 6 Fr ench sheath was placed. A guidewire was advanced through the arterial anastomosis where angioplasty was performed at this level. Multiple angioplasties were needed with multiple Fogerty balloon retract ions given the relative large size of the proximal outflow vein to the partial loop graft trapping th e thrombus in the proximal outflow vein. Eventually, the thrombus was macerated and cleared. Followup examination the fistula demonstrates good flow through the fistula and no evidence of residual steno sis. . The patient tolerated the procedure well and there were no complications. Conscious sedation was per formed with the prescribed dosages and duration as above in the presence of an independent trained ra diology nurse to assist in the monitoring of the patient. EKG and oximetry remained stable throughou t the procedure. CONCLUSION: 1. Challenging but uncomplicated declotting of thrombosed partial loop graft in the proximal forearm . Electronically signed by: Edison Jeffers MD 05/13/2018 3:02 PM EDT
== END 2018-05-11 22:32 | disposition home or self-care (01) ==
LOC: NEPE 09:33 → NEDA 12:21 → NEPGCP 13:12
PROVIDERS: ADMIT Hospitalist; ATTEND Hospitalist